=== PATIENT | male | born 1955 | race Caucasian/White ===

== ENCOUNTER 2018-02-20 01:40 | Emergency (ER) | payer OTHER ==
[2018-02-20 01:57] VITALS: BMI 27.1
--- NOTE | 2018-02-20 02:00 | PDOC ---
History of Present Illness - General Chief Complaint: Coffee Ground Emesis Stated Complaint: GI BLEED - History of Present Illness Initial Comments: Qamar Mcconnell is a 62yo man with a PMH of IDDM, diabetic nephropathy, movement disorder, mood disorder, psychotic disorder (schizophrenoform vs schizoaffective per paperwork from [facility]), refractory anemia, GERD, BPH, HLD who presents from [facility] with report of coffee ground emesis. Mr Mcconnell is a poor historian and appears to have a difficult time remembering the timeline of events. He initially reports that he was vomiting blood yesterday, later stated that it occured today, and finally said that it started 2 days ago. He also states that he had a colonoscopy "a couple of days ago" for similar symptoms. He states that he was vomiting bright red blood and also having BRBPR though there is no record of this symptom either. Per his paperwork from [facility], he was previously diagnosed with esophageal ulcer on EGD. Mr Mcconnell denies any symptoms at this time. Past History - Past Medical History Allergies/Adverse Reactions: Allergies Allergy/AdvReac Type Severity Reaction Status Date / Time Penicillins Allergy Unknown Rash Verified 02/20/18 06:10 Home Medications: Ambulatory Orders Acetaminophen [Tylenol] 650 mg PO Q6H PRN 04/27/12 Benztropine Mesylate 1 mg PO BID 04/27/12 Celexa 60 mg PO DAILY 04/27/12 Docusate Sodium [Colace] 3 cap PO HS 04/27/12 Humulin R SQ BID 04/27/12 Klonopin 2 mg PO TID 04/27/12 Magnesium Hydrox 2400MG/30Ml [Milk Of Magnesia] 400 mg PO DAILY PRN 04/27/12 Omeprazole Magnesium [Prilosec (OTC)] 1 tab PO DAILY 04/27/12 Quetiapine Fumarate [Seroquel] 100 mg PO DAILY 04/27/12 Seroquel 200 mg PO BID 04/27/12 Simvastatin [Zocor -] 1 tab PO DAILY 04/27/12 Tamulosin 0.4 mg PO Q12H 04/27/12 Vitamin C 500 mg PO DAILY 04/27/12 COPD: No Diabetes: Yes GI Disorders: Yes (esophageal reflux) HTN: Yes - Suicide/Smoking/Psychosocial Hx Smoking History: Unknown if ever smoked Have you smoked in the past 12 months: No If you are a former smoker, when did you quit?: 1995 Information on smoking cessation initiated: No Review of Systems - Review of Systems Comments:: Could not obtain *Physical Exam - Vital Signs Last Vital Signs Temp Pulse Resp BP Pulse Ox 98.4 F 107 H 18 128/78 99 02/20/18 01:51 02/20/18 01:51 02/20/18 01:51 02/20/18 01:51 02/20/18 01:51 - Physical Exam Comments: General: Comfortable, no acute distress HEENT: PERRL, EOMI, MMM, voice normal Cards: RRR Pulm: Comfortable on room air, clear to auscultation bilaterally Abd: Soft, nontender, nondistended : No CVA tenderness Rectal: Normal tone, no blood noted, no perianal lesions. Firm stool in vault, alvarez in color. No hemorrhoids or bleeding noted. Ext: Atraumatic. No LE edema. Vasc: Extremities WWP. Skin: Normal color, no rashes or lesions Neuro: Awake, conversational. Appears confused regarding timeline of events. CN grossly intact, normal speech, motor/sensory grossly intact and symmetric Psych: Mood appropriate to situation ED Treatment Course - LABORATORY CBC & Chemistry Diagram: 02/20/18 04:50 02/20/18 02:46 Medical Decision Making - Medical Decision Making 02/20/18 05:04 Qamar Mcconnell is a 62yo man with multiple chronic medical conditions including a prior esophageal ulcer who presents from [facility] with a report of coffee ground emesis today. He is unable to provide any additional information regarding his symptoms. - Slightly tachycardic to 105 on presentation. No sign of active bleeding or emesis. - CBC, CMP, coags, type and screen, EKG ordered to evaluate for bleeding. - CBC 11.8. Per records, has history of anemia. Will recheck for any drop in H/H - Stool occult blood sent. No sign of hemorrhoids or blood on rectal exam, stool formed and alvarez in color. No melena noted. Result pending. - EKG with sinus tachycardia. - CXR completed to evaluate for any esophageal bleed or abnormality. Xray reviewed. No abnormalities noted - Repeat CBC pending - UA needs to be sent, patient has not been able to urinate yet. 02/20/18 05:55 - Stool occult blood negative - Repeat CBC unchanged. 11.5 from 11.8 after receiving 1L fluid bolus. - No episodes of emesis, melena or nausea or abdominal pain since arrival in the ED. - Plan to discharge back to [facility]. Should follow up with GI as an outpatient. Discussed with Dr Oneill. Wen Saranya PGY1 *DC/Admit/Observation/Transfer Diagnosis at time of Disposition: History of esophageal ulcer - Discharge Dispostion Disposition: HOME Condition at time of disposition: Stable Decision to Admit order: No - Referrals Referrals: Rios Almonte MD [Primary Care Provider] - Hayden Esteban DO [Staff Physician] - - Patient Instructions Printed Discharge Instructions: Gastrointestinal Bleeding Additional Instructions: Discharge Instructions: - You were seen in the ED for evaluation of possible GI bleeding. While in the ED, you had no episodes of vomiting or bleeding. Your stool was tested for blood , and there was no blood. - You had a slightly fast heart rate, and this may be due to mild dehydration. You had IV fluids given. Make sure that you are drinking enough fluids at home. - Continue to take your home antacid (omeprazole) - Make an appointment to follow up with a GI doctor. You have been referred to Dr Esteban for follow up if you need to establish care with a GI doctor. - You should also make an appointment to see your primary physician within the next 2-3 days for follow up. - Seek medical care if you have any more possible GI bleeding including blood in vomit or stool, if you have severe abdomional pain, chest pain, shortness of breath, or lightheadedness/fainting. - Post Discharge Activity
[2018-02-20] MEDS ORDERED: SODIUM CHLORIDE 1,000 ML IV STA (02:12)
[2018-02-20] MEDS ORDERED: PANTOPRAZOLE SODIUM 40 MG in SODIUM CHLORIDE 100 ML IVPB ONE (02:12)
[2018-02-20 02:58] LABS: BASO % 1.3 % (0-2.0); EOS % 4.9 % (0-4.5); HEMATOCRIT 33.4 % (35.4-49); HEMOGLOBIN 11.8 GM/dL (11.7-16.9); LYMPH % 14.6 % (8-40); MCH 28.9 pg (25.7-33.7); MCHC 35.2 g/dl (32.0-35.9); MEAN CELL VOLUME 81.9 fl (80-96); MEAN PLT VOLUME 7.8 fl (7.5-11.1); MONO % 10.7 % (3.8-10.2); NEUT % 68.5 % (42.8-82.8); PLATELET COUNT 284 K/MM3 (134-434); RBC 4.08 M/mm3 (4.00-5.60); RDW 21.7 % (11.9-15.9); RETICULOCYTES 1.19 % (0.5-1.5); WHITE BLOOD COUNT 6.3 K/mm3 (4.0-10.0)
[2018-02-20] MEDS ORDERED: PANTOPRAZOLE SODIUM 40 MG/100 ML BAG IVPB ONE (02:58)
[2018-02-20 03:09] LABS: INR 1.02 (0.83-1.09)
[2018-02-20 03:20] LABS: ALBUMIN 3.4 g/dl (3.4-5.0); ALK PHOS 97 U/L (45-117); ANION GAP 7 MMOL/L (8-16); BILIRUBIN,TOTAL 0.5 mg/dL (0.2-1); BLOOD UREA NITROGEN 26 mg/dL (7-18); CALCIUM 8.6 mg/dL (8.5-10.1); CHLORIDE 105 mmol/L (98-107); CO2 27 mmol/L (21-32); CREATININE 1.6 mg/dL (0.55-1.3); GLUCOSE,RANDOM 147 mg/dL (74-106); SGOT/AST 19 U/L (15-37); SGPT/ALT 15 U/L (13-61); SODIUM 140 mmol/L (136-145); TOT PROT 7.6 g/dl (6.4-8.2)
[2018-02-20 05:08] LABS: HEMATOCRIT 33.3 % (35.4-49); HEMOGLOBIN 11.5 GM/dL (11.7-16.9); MCH 28.7 pg (25.7-33.7); MCHC 34.4 g/dl (32.0-35.9); MEAN CELL VOLUME 83.2 fl (80-96); MEAN PLT VOLUME 7.9 fl (7.5-11.1); PLATELET COUNT 260 K/MM3 (134-434); WHITE BLOOD COUNT 5.6 K/mm3 (4.0-10.0)
--- NOTE | 2018-02-20 05:20 | PDOC ---
Attending Attestation - Resident Resident Name: Wen Beaver - ED Attending Attestation I have performed the following: I have examined & evaluated the patient, The case was reviewed & discussed with the resident, I agree w/resident's findings & plan, Exceptions are as noted - HPI HPI: 02/20/18 05:18 poor historian. reports hemotemesis and hematochezia - Physicial Exam PE: 02/20/18 05:20 FOBT trace positive - Medical Decision Making 02/20/18 05:16 ? GI bleed trace positive FOBT, no visible blood no ac, no anti-plt serial hct
[2018-02-20 06:37] VITALS: BP 148/83; PULSE 92; TEMP 98.9
[2018-02-20 08:01] LABS: ANISOCYTOSIS 1+
[2018-02-20 08:02] LABS: PLATELET ESTIMATE ADEQUATE
--- NOTE | 2018-02-20 10:28 | EKG ---
Test Reason : Blood Pressure : / mmHG Vent. Rate : 104 BPM Atrial Rate : 104 BPM P-R Int : 204 ms QRS Dur : 082 ms QT Int : 366 ms P-R-T Axes : 040 007 028 degrees QTc Int : 481 ms SINUS TACHYCARDIA SEPTAL INFARCT , AGE UNDETERMINED ABNORMAL ECG NO PREVIOUS ECGS AVAILABLE Confirmed by GWENDOLYN JONES MD ([id number]) on 02/20/2018 10:27:47 AM Referred By: Confirmed By:GWENDOLYN JONES MD
== END 2018-02-20 08:10 | disposition home or self-care (01) ==
LOC: JER 01:40
PROC: 3E033GC Introduction of Other Therapeutic Substance into Peripheral Vein, Percutaneous Approach (ICD-10-PCS; principal; 2018-02-20)
DX: K92.0 Hematemesis (principal); Z87.19 Personal history of other diseases of the digestive system; E11.21 Type 2 diabetes mellitus with diabetic nephropathy; Z79.4 Long term (current) use of insulin; G25.9 Extrapyramidal and movement disorder, unspecified; F39 Unspecified mood [affective] disorder; F20.89 Other schizophrenia; K21.9 Gastro-esophageal reflux disease without esophagitis; N40.0 Benign prostatic hyperplasia without lower urinary tract symptoms; E78.00 Pure hypercholesterolemia, unspecified; Z86.2 Personal history of diseases of the blood and blood-forming organs and certain disorders involving the immune mechanism
CPT/HCPCS: 36415; 71045-TC-FY; 80053; 82272; 85025; 85027; 85044; 85610; 86850; 86900; 86901; 93005; 93010; 96365; 99282-25; J7030

== ENCOUNTER 2018-07-19 09:32 | Day surgery (SDC) | payer OTHER ==
[2018-07-14 10:58] VITALS: BMI 29.5
[2018-07-19] MEDS ORDERED: PROPOFOL 20 ML ONE (11:26)
[2018-07-19] MEDS ORDERED: LIDOCAINE HCL/PF 2% SDV 5ML VIAL ONE (11:26)
[2018-07-19 16:11] VITALS: TEMP 98.2
[2018-07-19 16:17] VITALS: BP 130/79; PULSE 83
== END 2018-07-19 13:30 ==
LOC: FASU-ENDO 09:32
PROVIDERS: ATTEND Internal Medicine Gastroenterology
PROC: 0DJ08ZZ Inspection of Upper Intestinal Tract, Via Natural or Artificial Opening Endoscopic (ICD-10-PCS; principal; 2018-07-19 12:08)
DX: R10.13 Epigastric pain (principal); R10.9 Unspecified abdominal pain
CPT/HCPCS: 82962

== ENCOUNTER 2018-08-30 08:37 | Day surgery (SDC) | payer OTHER ==
[2018-08-28 12:16] VITALS: BMI 30.2
[2018-08-30] MEDS ORDERED: LIDOCAINE HCL/PF 2% SDV 5ML VIAL ONE (10:07)
[2018-08-30] MEDS ORDERED: PROPOFOL 20 ML ONE ×2 (10:07)
[2018-08-30 11:39] VITALS: BP 128/81; PULSE 85; TEMP 98
--- NOTE | 2018-09-01 15:29 | PATH ---
Surgical Pathology Report Patient Name: MARTY VERONICA [facility]. Rec. #: [id number] /Age/Gender: 1955 (Age: 62) / M Account: [id number] Location: [facility] AMBULATORY Taken: 08/30/2018 Received: 08/30/2018 Reported: 09/01/2018 Physicians: Rosey Johnson M.D. Specimen(s) Received A: BX SECOND PORTION DUODENUM B: BX GASTRIC ANTRUM C: BX GE JUNCTION Clinical History N&V Postoperative diagnosis: Gastritis, esophagitis Final Diagnosis A. SECOND PORTION DUODENUM, BIOPSY: DUODENAL MUCOSA WITH NO PATHOLOGIC FINDINGS. B. GASTRIC ANTRUM, BIOPSY: MODERATE CHRONIC GASTRITIS. IMMUNOSTAIN IS NEGATIVE FOR H. PYLORI ORGANISMS. C. GE JUNCTION, BIOPSY: COLUMNAR (GASTRIC CARDIA-TYPE) MUCOSA WITH MILD CHRONIC INFLAMMATION. NEGATIVE FOR INTESTINAL METAPLASIA. NO ESOPHAGEAL (SQUAMOUS) MUCOSA IS IDENTIFIED. Electronically Signed Saige Wilson M.D. Gross Description A. Received in formalin, labeled, "second portion duodenum" is one piece of alvarez tissue measuring 0.3 cm in greatest dimension. Entirely submitted in one cassette. B. Received in formalin, labeled, "gastric antrum" is one piece of alvarez tissue measuring 0.3 cm in greatest dimension. Entirely submitted in one cassette. C. Received in formalin, labeled, "GE junction" is one piece of alvarez tissue measuring 0.4 cm in greatest dimension. Entirely submitted in one cassette. AE/08/31/2018 ebram/08/31/2018
== END 2018-08-30 11:39 | disposition home or self-care (01) ==
LOC: FASU 08:37
PROVIDERS: ATTEND Internal Medicine Gastroenterology
PROC: 0DB68ZX Excision of Stomach, Via Natural or Artificial Opening Endoscopic, Diagnostic (ICD-10-PCS; 2018-08-30)
PROC: 0DB48ZX Excision of Esophagogastric Junction, Via Natural or Artificial Opening Endoscopic, Diagnostic (ICD-10-PCS; 2018-08-30)
PROC: 0DB98ZX Excision of Duodenum, Via Natural or Artificial Opening Endoscopic, Diagnostic (ICD-10-PCS; principal; 2018-08-30 10:48)
DX: K29.50 Unspecified chronic gastritis without bleeding (principal); K21.0 Gastro-esophageal reflux disease with esophagitis; R11.2 Nausea with vomiting, unspecified
CPT/HCPCS: 82962; 88305-TC; 88342-TC